=== PATIENT | female | born 1970 | race Two or more races ===

== ENCOUNTER 2023-09-08 14:58 | Emergency (ER) | payer OTHER ==
[~2023-09-08] VITALS: Ht 157.5 cm; Wt 68.9 kg
[2023-09-08 16:32] LABS: HEMATOCRIT 41.8 % (36.0-45.00); HEMOGLOBIN 14.3 g/dL (12.0-15.00); MEAN CORPUSCULAR HEMOGLOBIN 30.8 pg (27.00-32.0); MEAN CORPUSCULAR HGB CONC 34.2 g/dl (32.0-36.0); PLATELET COUNT 303 K/uL (150-450); RED BLOOD COUNT 4.64 M/uL (4.00-6.00); RED CELL DISTRIBUTION WIDTH 13.6 % (11.5-14.5)
[2023-09-08 16:57] LABS: URINE APPEARANCE Clear; URINE BILIRRUBIN Small (NEGATIVE); URINE BLOOD Negative; URINE COLOR Dark Yellow; URINE GLUCOSE Negative (NEGATIVE); URINE LEUKOCYTE Trace; URINE NITRATE Negative; URINE PROTEIN 30 (NEGATIVE)
[2023-09-08 16:58] LABS: URINE BACTERIA 2285.6 uL (0.0-1933); URINE EPITHELIAL CELLS 31.3 uL (0.0-38.8); URINE RBC 19.5 uL (0.0-20.8); URINE WBC 44.3 uL (0.0-23.2)
[2023-09-08 17:05] LABS: CALCIUM 10.4 mg/dL (8.5-10.1); CREATININE SERUM 0.63 mg/dL (0.55-1.02); GFR 98.85; POTASSIUM 3.69 mEq/L (3.5-5.1)
[2023-09-08] MEDS ORDERED: PEPCID AC20 MG PO (18:47)
[2023-09-08] MEDS ORDERED: MECLIZINE HCL25 MG PO (18:47)
[2023-09-08] MEDS ORDERED: ONDANSETRON HCL4 MG PO (18:47)
== END 2023-09-08 19:28 ==
LOC: ER 14:58
PROVIDERS: Nurse Practitioner Family
DX: E86.0 Dehydration (principal); R10.13 Epigastric pain; I10 Essential (primary) hypertension; J45.909 Unspecified asthma, uncomplicated

== ENCOUNTER 2023-09-17 18:48 | Emergency (ER) | payer OTHER ==
[~2023-09-17] VITALS: Ht 157.5 cm; Wt 68.9 kg
[~2023-09-17 18:48] MED LIST: MECLIZINE HCL25 MG PO; ONDANSETRON HCL4 MG PO; PEPCID AC20 MG PO
[2023-09-17] MEDS ORDERED: COZAAR25 MG PO (19:00)
[2023-09-17 20:51] LABS: HEMATOCRIT 44.5 % (36.0-45.00); HEMOGLOBIN 14.7 g/dL (12.0-15.00); MEAN CELL VOLUME 91.2 fL (80.00-100.00); MEAN CORPUSCULAR HEMOGLOBIN 30.1 pg (27.00-32.0); PLATELET COUNT 315 K/uL (150-450); RED BLOOD COUNT 4.88 M/uL (4.00-6.00)
[2023-09-17 21:17] LABS: CALCIUM 10.3 mg/dL (8.5-10.1); CREATININE SERUM 0.62 mg/dL (0.55-1.02); GFR 100.69; POTASSIUM 3.85 mEq/L (3.5-5.1)
[2023-09-17 21:29] LABS: URINE APPEARANCE Clear; URINE BILIRRUBIN Negative (NEGATIVE); URINE BLOOD Negative; URINE COLOR Dark Yellow; URINE GLUCOSE Negative (NEGATIVE); URINE LEUKOCYTE Trace; URINE NITRATE Negative; URINE PROTEIN Trace (NEGATIVE)
[2023-09-17 21:32] LABS: URINE BACTERIA 873.1 uL (0.0-1933); URINE EPITHELIAL CELLS 31.6 uL (0.0-38.8); URINE RBC 38.9 uL (0.0-20.8); URINE WBC 41.1 uL (0.0-23.2)
== END 2023-09-17 22:10 | disposition home or self-care (01) ==
LOC: ER 18:48
PROVIDERS: Emergency Medicine
DX: K29.70 Gastritis, unspecified, without bleeding (principal)